=== PATIENT | female | born 1965 | race Caucasian/White ===

== ENCOUNTER 2018-10-11 05:10 | Emergency (ER) | payer MEDICAID ==
[~2018-10-11] VITALS: Ht 152.4 cm; Wt 81.6 kg
[2018-10-11] MEDS ORDERED: BELLADONNA ALKALOIDS/PHENOBARB 5 ML UDC ONE (05:42)
[2018-10-11] MEDS ORDERED: MAG-AL HYDROX/SIMETH 30 ML UDC ONE (05:42)
[2018-10-11] MEDS ORDERED: LIDOCAINE VISCOUS 2%, 15 ML UDC ONE (05:42)
[2018-10-11] MEDS ORDERED: MAG HYDROX/AL HYDROX/SIMETH 30 ML, BELLADONNA ALKALOIDS/PHENOBARB 10 ML, LIDOCAINE VISC... PO ONE ×3 (06:00)
[2018-10-11 06:20] VITALS: BP_SYST 163
== END 2018-10-11 06:19 | disposition home or self-care (01) ==
LOC: SED 05:10
DX: K21.9 Gastro-esophageal reflux disease without esophagitis (principal); I10 Essential (primary) hypertension
CPT/HCPCS: 93005; 99283; J2001

== ENCOUNTER 2018-11-24 03:48 | Emergency (ER) | payer SELFPAY ==
[~2018-11-24] VITALS: Ht 162.6 cm; Wt 72.6 kg
[2018-11-24 04:00] VITALS: BP_SYST 136
[2018-11-24] MEDS ORDERED: MAG HYDROX/AL HYDROX/SIMETH 30 ML, BELLADONNA ALKALOIDS/PHENOBARB 10 ML, LIDOCAINE VISC... PO ONE ×3 (04:30)
[2018-11-24] MEDS ORDERED: AZITHROMYCIN 250 MG TABLET PO ONE (05:30)
[2018-11-24 05:39] VITALS: BP_SYST 136
== END 2018-11-24 05:39 | disposition home or self-care (01) ==
LOC: SED 03:48
DX: J20.9 Acute bronchitis, unspecified (principal); K21.9 Gastro-esophageal reflux disease without esophagitis; I10 Essential (primary) hypertension
CPT/HCPCS: 99283; J2001; Q0144

== ENCOUNTER 2020-05-26 05:24 | Emergency (ER) | payer MEDICAID ==
[~2020-05-26] VITALS: Ht 149.9 cm; Wt 72.6 kg
[2020-05-26 05:30] VITALS: BP_SYST 147
[2020-05-26] MEDS ORDERED: MAG HYDROX/AL HYDROX/SIMETH 30 ML, DICYCLOMINE HCL 20 MG, LIDOCAINE VISCOUS 2% 15ML (PO... PO ONE ×3 (05:45)
[2020-05-26] MEDS ORDERED: PANTOPRAZOLE SODIUM 40 MG TAB PO ONE (05:45)
[2020-05-26 06:05] VITALS: BP_SYST 147
== END 2020-05-26 06:05 | disposition home or self-care (01) ==
LOC: SED 05:24
DX: K21.9 Gastro-esophageal reflux disease without esophagitis (principal); I10 Essential (primary) hypertension
CPT/HCPCS: 99283; J2001

== ENCOUNTER 2020-06-08 17:45 | Emergency (ER) | payer MEDICAID ==
[~2020-06-08] VITALS: Ht 149.9 cm; Wt 70.8 kg
[2020-06-08 18:05] VITALS: BP_SYST 162
--- NOTE | 2020-06-08 18:15 | NUR ---
PT TO REMAIN IN ER LOBBY UNTIL ER BED BECOMES AVAILABLE.
--- NOTE | 2020-06-08 19:54 | NUR ---
PT TO BED 6, ATTACHED TO MONITOR. PT REPORTS THAT HER SYMPTOMS ARE CURRENTLY IMPROVING SINCE THE TIME SHE AERRIVED.
--- NOTE | 2020-06-08 20:12 | NUR ---
Dr. Wagoner [facility] for pt eval
--- NOTE | 2020-06-08 20:15 | NUR ---
Pt BIB family to ED with history of hypertension and hyperlipidemia who presents to the ED for headache that comes/goes that started at 1800 this evening. She also complains of associated symptoms of facial tingling, vision changes and feels that her "heart is racing." Symptoms were sudden in onset. No history of headache/migraine and similar symptoms. Pain is 4/10 in severity and is described as pressure like pain. She denies head injury, trauma or fall. She denies taking any Tylenol or Motrin for pain at home
[2020-06-08 20:32] LABS: EOSINOPHILS # (AUTO) 0.2 K/uL (0.0-0.4); MEAN CORPUSCULAR VOLUME 95 fL (79.0-98.0); MONOCYTES # (AUTO) 0.9 K/uL (0.0-1.0); MONOCYTES % (AUTO) 9.5 % (1.7-9.3); WHITE BLOOD COUNT (AUTO) 9.8 K/uL (4.8-10.8)
[2020-06-08 20:34] LABS: CALCIUM 8.8 mg/dL (8.4-11.0); CREATININE 0.73 mg/dL (0.55-1.30)
[2020-06-08 20:37] LABS: POTASSIUM 2.9 mmol/L (3.5-5.1)
[2020-06-08 20:40] LABS: ALBUMIN 3.8 g/dL (3.4-4.8); TOTAL BILIRUBIN 0.2 mg/dL (0.0-1.0)
[2020-06-08 20:41] LABS: BASOPHILS # (AUTO) 0.1 K/uL (0.0-0.2); BASOPHILS % (AUTO) 0.7 % (0.0-2.0); EOSINOPHILS % (AUTO) 2.2 % (0.0-4.0); HEMATOCRIT 37.6 % (36-48); LYMPHOCYTES # (AUTO) 2.4 K/uL (1.0-5.5); MEAN CORPUSCULAR HEMOGLOBIN 33 pg (27-31); MEAN CORPUSCULAR HGB CONC 35 % (32-36); NEUTROPHILS # (AUTO) 6.2 K/uL (1.8-7.7); NEUTROPHILS % (AUTO) 63.6 % (40.0-70.0); PLATELET COUNT (AUTO) 238 K/uL (130-430); RED BLOOD CELL COUNT(AUTO) 3.94 MIL/uL (4.2-6.2); RED CELL DISTRIBUTION WIDTH 12.6 % (9.0-15.0)
--- NOTE | 2020-06-08 21:20 | NUR ---
VSS no s/s of acute distress Resting on gurney rails up
[2020-06-08] MEDS: PROCHLORPERAZINE EDISYLATE 10 MG/2 ML VIAL IVP ONE (21:31)
[2020-06-08] MEDS: NS 500 ML IV ONE (21:31)
[2020-06-08] MEDS: DIPHENHYDRAMINE INJ 50 MG/ML VIAL IVP ONE (21:31)
[2020-06-08] MEDS: POTASSIUM CHLORIDE 20 MEQ TAB.PRT.SR PO ONE (21:32)
[2020-06-08] MEDS: KETOROLAC TROMETHAMINE 30 MG VIAL IVP ONE (21:32)
[2020-06-08 22:00] VITALS: BP_SYST 137
--- NOTE | 2020-06-08 22:00 | NUR ---
Patient given written and verbal discharge instructions and verbalizes understanding. ER MD discussed with patient the results and treatment provided. Patient in stable condition. ID arm band removed. IV catheter removed intact and dressing applied, no active bleeding. No Rx given. Patient educated on pain management and to follow up with PMD. Pain Scale 2/10 ps. Opportunity for questions provided and answered.
== END 2020-06-08 22:00 | disposition home or self-care (01) ==
LOC: SED 17:45
DX: R51.9 Headache, unspecified (principal)
CPT/HCPCS: 36415; 70450; 76376; 80053; 85025; 96374; 96375; 99284; J7040

== ENCOUNTER 2020-06-16 01:39 | Emergency (ER) | payer MEDICAID ==
[~2020-06-16] VITALS: Ht 149.9 cm; Wt 70.8 kg
[2020-06-16 02:01] VITALS: BP_SYST 144
--- NOTE | 2020-06-16 02:03 | NUR ---
Patient to ER bed 01 to gown for evaluation. Side rails up. Report given to CRISS Vivas
--- NOTE | 2020-06-16 02:20 | NUR ---
PT CAME IN FROM HOME WITH C/O TINGLING SENSATION IN NECK AND PRESSURE IN BILATERAL SHOULDERS THAT WOKE HER UP AROUND 0100. PT PRESENTS TO ER DENYING PAIN OR DISCOMFORT BUT STILL HAVING INTERMITTANT TINGLING SENSATIONS AROUND HER NECK. PT IS AAOX4, V/S STABLE.
--- NOTE | 2020-06-16 02:26 | NUR ---
ER DR. HERNANDEZ AT THE BEDSIDE EVALUATING PT
[2020-06-16 02:46] LABS: BASOPHILS # (AUTO) 0.1 K/uL (0.0-0.2); BASOPHILS % (AUTO) 1.1 % (0.0-2.0); EOSINOPHILS # (AUTO) 0.2 K/uL (0.0-0.4); EOSINOPHILS % (AUTO) 2.5 % (0.0-4.0); HEMATOCRIT 36.4 % (36-48); HEMOGLOBIN 12.4 g/dL (12.0-16.0); LYMPHOCYTES # (AUTO) 2.3 K/uL (1.0-5.5); LYMPHOCYTES % (AUTO) 27.1 % (20.5-51.5); MEAN CORPUSCULAR HEMOGLOBIN 33 pg (27-31); MEAN CORPUSCULAR HGB CONC 34 % (32-36); MEAN CORPUSCULAR VOLUME 96 fL (79.0-98.0); MONOCYTES # (AUTO) 0.7 K/uL (0.0-1.0); MONOCYTES % (AUTO) 8.3 % (1.7-9.3); NEUTROPHILS # (AUTO) 5.1 K/uL (1.8-7.7); PLATELET COUNT (AUTO) 209 K/uL (130-430); RED BLOOD CELL COUNT(AUTO) 3.79 MIL/uL (4.2-6.2); RED CELL DISTRIBUTION WIDTH 12.6 % (9.0-15.0); WHITE BLOOD COUNT (AUTO) 8.3 K/uL (4.8-10.8)
[2020-06-16 03:01] LABS: CALCIUM 9.2 mg/dL (8.4-11.0); CREATININE 0.64 mg/dL (0.55-1.30); POTASSIUM 3.1 mmol/L (3.5-5.1)
[2020-06-16 03:07] LABS: ALBUMIN 3.7 g/dL (3.4-4.8); TOTAL BILIRUBIN 0.2 mg/dL (0.0-1.0)
--- NOTE | 2020-06-16 03:10 | NUR ---
PT RESTING IN BED, NO S/SX OF DISTRESS. V/S STABLE
[2020-06-16] MEDS ORDERED: POTASSIUM CHLORIDE 20 MEQ TAB.PRT.SR PO ONE (03:30)
[2020-06-16] MEDS ORDERED: POTASSIUM CHLORIDE 20 MEQ TAB.PRT.SR ONE (03:35)
--- NOTE | 2020-06-16 03:50 | NUR ---
Patient given written and verbal discharge instructions and verbalizes understanding. ER MD discussed with patient the results and treatment provided. Patient in stable condition. ID arm band removed. Patient educated on pain management and to follow up with PMD. Pain Scale 0/10. Opportunity for questions provided and answered. Medication side effect fact sheet provided.
[2020-06-16 03:57] VITALS: BP_SYST 144
== END 2020-06-16 03:50 | disposition home or self-care (01) ==
LOC: SED 01:39
DX: R20.2 Paresthesia of skin (principal); I10 Essential (primary) hypertension; K21.9 Gastro-esophageal reflux disease without esophagitis
CPT/HCPCS: 36415; 80053; 85025; 93005; 99284